=== PATIENT | female | born 1975 | race Caucasian/White ===

== ENCOUNTER 2020-09-04 23:37 | Emergency (ER) | payer OTHER ==
[2020-09-05] MEDS ORDERED: FAMOTIDINE 20 MG/50 ML IVPB 20 MG/50 ML MG IVPB ONE ×2 (00:24→00:31)
[2020-09-05] MEDS ORDERED: methylPREDNISolone NA SUCC 125 MG/2 ML VIAL IVPUSH ONE (00:24)
[2020-09-05] MEDS ORDERED: methylPREDNISolone NA SUCC 125 MG/2 ML VIAL ONE (00:31)
[2020-09-05 03:06] VITALS: BP 137/86; TEMP 98.9; BMI 46.5
[2020-09-05 05:16] VITALS: PULSE 88
== END 2020-09-05 05:16 | disposition home or self-care (01) ==
LOC: JER 23:37
PROC: 3E033GC Introduction of Other Therapeutic Substance into Peripheral Vein, Percutaneous Approach (ICD-10-PCS; principal; 2020-09-04)
PROC: 3E033GC Introduction of Other Therapeutic Substance into Peripheral Vein, Percutaneous Approach (ICD-10-PCS; 2020-09-04)
PROC: 3E033GC Introduction of Other Therapeutic Substance into Peripheral Vein, Percutaneous Approach (ICD-10-PCS; 2020-09-04)
DX: T61.11XA Scombroid fish poisoning, accidental (unintentional), initial encounter (principal)
CPT/HCPCS: 99284-25